=== PATIENT | female | born 1975 | race Caucasian/White ===

== ENCOUNTER 2020-06-06 20:52 | Emergency (ER) | payer OTHER ==
[~2020-06-06] VITALS: Ht 160 cm; Wt 114.3 kg
[2020-06-06 21:05] VITALS: Ht 160 cm; Wt 114.3 kg
[2020-06-06 21:32] LABS: BASOPHIL % 0.8 % (0.2-1.3)
[2020-06-06 21:34] LABS: PLATELET COUNT 434 x10^3mcL (179-408); RED CELL DISTRIBUTION WIDTH 16.4 % (12.3-17.7)
[2020-06-06 21:35] LABS: rbc morphology (normal/abnorm) NORMAL (NORMAL)
[2020-06-06 22:00] LABS: CALCIUM 8.7 mg/dL (8.5-10.1); CARBON DIOXIDE 27.8 mmol/L (21-32); CHLORIDE SERUM 102 mmol/L (98-107); CREATININE SERUM 0.6 mg/dL (0.6-1.0); GFR1 > 60 mL/min; GLUCOSE SERUM 99 mg/dL (74-106); POTASSIUM SERUM 3.1 mmol/L (3.5-5.1); SODIUM SERUM 140 mmol/L (136-145)
[2020-06-06 22:04] LABS: ALBUMIN 3.4 g/dL (3.4-5.0); ALKALINE PHOSPHATASE 266 U/L (46-116); ALT/SGPT 414 U/L (14-59); AST/SGOT 384 U/L (15-37); BILIRUBIN TOTAL 1.7 mg/dL (0.20-1.00); LIPASE 84 IU/L (73-393); TOTAL PROTEIN, SERUM 7.2 g/dL (6.4-8.2)
[2020-06-06 22:05] LABS: AMYLASE 19 U/L (25-115)
[2020-06-06] MEDS ORDERED: ACETAMINOPHEN-H1 TA1 PO (22:27)
[2020-06-06 22:44] VITALS: BP 155/82
== END 2020-06-06 22:44 | disposition home or self-care (01) ==
LOC: ED 20:52
PROVIDERS: Emergency Medicine
DX: K80.50 Calculus of bile duct without cholangitis or cholecystitis without obstruction (principal); Z88.2 Allergy status to sulfonamides
CPT/HCPCS: J1885